=== PATIENT | male | born 1960 | race Caucasian/White ===

== ENCOUNTER 2018-02-02 21:23 | Emergency (ER) | payer OTHER ==
[2018-02-02] MEDS ORDERED: CHLORHEXIDINE GLUCONATE 4 % 15 ML UD TOP ONE (21:31)
[2018-02-02 21:51] VITALS: TEMP 97.2
--- NOTE | 2018-02-02 22:11 | ED.PDOC ---
History of Present Illness - General Chief Complaint: Laceration Stated Complaint: cut my hand Time Seen by Provider: 02/02/18 22:09 Source: patient, family Exam Limitations: no limitations - History of Present Illness Initial Comments: patient was preparing a deer that he had killed hunting today when he sliced his left hand with his knife. Prior to that he was feeling fine he has no other acute complaints. Timing/Duration: just prior to arrival Severity: moderate Location: hands Improving Factors: nothing Worsening Factors: nothing Associated Symptoms: denies symptoms Review of Systems - Review of Systems Constitutional: States: no symptoms reported EENTM: States: no symptoms reported Respiratory: States: no symptoms reported Cardiology: States: no symptoms reported Gastrointestinal/Abdominal: States: no symptoms reported Skin: States: see HPI Past Medical History (General) - Patient Medical History Hx Seizures: No Hx Stroke: No Hx Dementia: No Hx Asthma: No Hx of COPD: No Hx Cardiac Disorders: No Hx Congestive Heart Failure: No Hx Pacemaker: No Hx Hypertension: No Hx Thyroid Disease: No Hx Diabetes: No Hx Gastroesophageal Reflux: No Hx Renal Disease: No Hx Cancer: No Hx of HIV: No Hx Hepatitis C: No Hx MRSA: No Surgical History: other - Vaccination History Hx Tetanus, Diphtheria Vaccination: Yes Hx Influenza Vaccination: Yes Hx Pneumococcal Vaccination: No - Social History Hx Tobacco Use: No Hx Alcohol Use: Yes Hx Substance Use: No Hx Substance Use Treatment: No Hx Depression: No - Female History Patient is a Female of Child Bearing Age (10 -59 yrs old): No - Triage Comment ED Triage Comment: aprox 2 cm lac Family Medical History - Family History Paternal Family History: Unknown Physical Exam - Physical Exam General Appearance: Alert, No apparent distress Neck: non-tender Cardiovascular/Chest: normal peripheral pulses, regular rate, rhythm, no edema, no murmur Respiratory: chest non-tender, lungs clear Gastrointestinal/Abdominal: normal bowel sounds Skin Exam: other - laceration 3 cm to thenar eminence to muscle with arterial pumping blood, Progress - Progress Progress: 02/02/18 22:11 patient has after repair normal sensation and full range of motion to all 5 digits 02/02/18 22:15 UTD on Tetanus Procedures - Laceration/Wound Repair Left Hand Wound's Depth, Shape: into muscle Wound Explored: clean Irrigated w/ Saline (cc's): 25 Betadine Prep?: No - hibacleanse Anesthesia: 1% Lidocaine Volume Anesthetic (cc's): 8 Wound Debrided: minimal Wound Repaired With: sutures Suture Size/Type: 5:0, vicryl rapide Number of Sutures: 7 - attempted with 3-0 but sutures tore through skin Layer Closure?: Yes Deep Layer Suture Size/Type: 5:0, vicryl Number Deep Layer Sutures: 3 - small artery in muscle found and tied off with figure 8 and interrupted suture Sterile Dressing Applied?: No Splint Applied?: No Departure - Departure Clinical Impression: Laceration Disposition: Discharge to Home or Self Care Condition: Good Departure Forms: ED Discharge - Pt. Copy, Patient Portal Self Enrollment Instructions: DI for Laceration Repair, DI for Laceration Repair -- Simple Additional Instructions: 7 interrupted sutures placed at skin that should be removed in 7-10 days. Clean area BID with warm soapy water and pat dry. Do not soak area of suture repair. Return to ER for redness, purulence, or temp >100.5.
[2018-02-02 22:37] VITALS: BP 132/76; O2SAT 95
== END 2018-02-02 22:35 | disposition home or self-care (01) ==
LOC: ER 21:23
DX: S61.412A Laceration without foreign body of left hand, initial encounter (principal); W26.0XXA Contact with knife, initial encounter; Y92.9 Unspecified place or not applicable